=== PATIENT | female | born 1985 | race Caucasian/White ===

== ENCOUNTER → 2016-11-19 | Outpatient (CLI) | payer BC | END | disposition home or self-care (01) | LOC: C.PAPS 11:50 | PROVIDERS: ATTEND Physician Assistant | DX: Z01.419 Encounter for gynecological examination (general) (routine) without abnormal findings (principal) ==

== ENCOUNTER → 2016-11-19 | Outpatient (CLI) | payer BC ==
[2016-11-19 16:55] LABS: HEMATOCRIT 43.2 % (37-47); MEAN CELL VOLUME 101.4 fL (80-100); MEAN CORPUSCULAR HEMOGLOBIN 35.9 pg (25-34); MEAN CORPUSCULAR HGB CONC 35.4 g/dl (32-36); MEAN PLATELET VOLUME 10.7 fL (7.4-10.4); PLATELET COUNT 215 K/uL (130-400); RED BLOOD COUNT 4.26 M/uL (4.2-5.4)
[2016-11-19 17:22] LABS: PREG INTERNAL NEGATIVE QC NEG CLEAR BACKGROUND; PREG INTERNAL POSITIVE QC POS CONTROL LINE
[2016-11-19 17:50] LABS: URINE APPEARANCE CLEAR (CLEAR); URINE BILIRUBIN NEG (NEG); URINE COLOR YELLOW; URINE EPITHELIAL CELL AUTO >30 /lpf (0-5); URINE NITRITE NEG (NEG); URINE PH 6.5 (4.5-7.5); URINE SPECIFIC GRAVITY 1.008 (1.000-1.030); UROBILINOGEN NEG (NEG)
[2016-11-19 17:56] LABS: MANUAL MICROSCOPIC REQUIRED? NO; REVIEW REQ? NO
[2016-11-21 01:18] LABS: RAPID PLASMA REAGIN NONREACTIVE (NONREACT)
[2016-11-22 23:55] LABS: CHLAMYDIA TRACH RNA*** NOT DETECTED (NOT DETECTED); GC (NEIS GONORRHOEAE)RNA** NOT DETECTED (NOT DETECTED)
== END | disposition home or self-care (01) ==
LOC: C.LAB1850 15:26
PROVIDERS: ATTEND Physician Assistant
DX: N92.6 Irregular menstruation, unspecified (principal); R39.9 Unspecified symptoms and signs involving the genitourinary system; Z11.3 Encounter for screening for infections with a predominantly sexual mode of transmission

== ENCOUNTER → 2017-03-17 | Outpatient (CLI) | payer BC | END | disposition home or self-care (01) | LOC: C.LAB1850 16:05 | PROVIDERS: ATTEND Obstetrics & Gynecology | DX: N83.209 Unspecified ovarian cyst, unspecified side (principal) ==

== ENCOUNTER → 2017-08-26 | Outpatient (CLI) | payer BC ==
[2017-08-26 16:25] LABS: BASO % 0.1 %; BASO ABS # 0.01 K/uL (0-0.2); EOS % 0.9 %; EOS ABS # 0.07 K/uL (0-0.5); HEMATOCRIT 32.5 % (37-47); HEMOGLOBIN 11.5 g/dL (12.0-16.0); IG# 0.02 K/uL (0.00-0.02); LYMPH % 23.4 %; LYMPH ABS # 1.92 K/uL (1.2-3.4); MEAN CELL VOLUME 98.5 fL (80-100); MEAN CORPUSCULAR HEMOGLOBIN 34.8 pg (25-34); MEAN CORPUSCULAR HGB CONC 35.4 g/dl (32-36); MEAN PLATELET VOLUME 10.4 fL (7.4-10.4); MONO % 9.8 %; NEUT % 65.6 %; NEUT ABS # 5.37 K/uL (1.4-6.5); PLATELET COUNT 254 K/uL (130-400); RED CELL DISTRIBUTION WIDTH CV 11.8 % (11.5-14.5); RED CELL DISTRIBUTION WIDTH SD 42.2 fL (36.4-46.3); WHITE BLOOD COUNT 8.19 K/uL (4.8-10.8)
== END | disposition home or self-care (01) ==
LOC: C.LAB1850 14:42
PROVIDERS: ATTEND Obstetrics & Gynecology
DX: O09.511 Supervision of elderly primigravida, first trimester (principal)

== ENCOUNTER → 2017-10-19 | Outpatient (CLI) | payer BC | END | disposition home or self-care (01) | LOC: C.LAB1850 16:51 | PROVIDERS: ATTEND Obstetrics & Gynecology | DX: O09.512 Supervision of elderly primigravida, second trimester (principal) ==

== ENCOUNTER → 2017-10-28 | Outpatient (CLI) | payer BC | END | disposition home or self-care (01) | LOC: C.LAB1850 07:37 | PROVIDERS: ATTEND Obstetrics & Gynecology | DX: O28.1 Abnormal biochemical finding on antenatal screening of mother (principal) ==

== ENCOUNTER 2018-03-20 03:09 | Inpatient (IN) | payer BC ==
[~2018-03-20] VITALS: Ht 165.1 cm; Wt 75.0 kg
[2018-03-20 03:53] VITALS: Ht 165.1 cm; Wt 75.0 kg
[2018-03-20] MEDS ORDERED: NURSING VERBAL MED ORDER ONE (04:00)
[2018-03-20] MEDS ORDERED: PEDICHW53 (04:00)
[2018-03-20] MEDS ORDERED: RANI150T3 PO (04:03)
[2018-03-20 04:10] LABS: HEMATOCRIT 29.6 % (37-47); HEMOGLOBIN 9.8 g/dL (12.0-16.0); MEAN CELL VOLUME 97.7 fL (80-100); MEAN CORPUSCULAR HEMOGLOBIN 32.3 pg (25-34); MEAN CORPUSCULAR HGB CONC 33.1 g/dl (32-36); PLATELET COUNT 144 K/uL (130-400); RED CELL DISTRIBUTION WIDTH CV 13.8 % (11.5-14.5); WHITE BLOOD COUNT 14.15 K/uL (4.8-10.8)
[2018-03-20] MEDS ORDERED: CEFAZOLIN IV 2,000 MG in SYRINGE 0 ML IV SCH (04:30)
[2018-03-20] MEDS ORDERED: LACTATED RINGER'S 1000ML 1,000 ML IV SCH ×2 (04:45→06:37)
[2018-03-20] MEDS ORDERED: LACTATED RINGER'S 1000ML 1,000 ML IV ONE (04:45)
[2018-03-20] MEDS ORDERED: LACTATED RINGER'S 1000ML 1,000 ML IV PRN (06:37)
[2018-03-20] MEDS ORDERED: LACTATED RINGER'S 1000ML 500 ML IV PRN ×2 (06:37→11:50)
[2018-03-20] MEDS ORDERED: OXYTOCIN 30 UNITS/500ML NSS IV PRN ×2 (06:45→14:30)
[2018-03-20] MEDS ORDERED: EpHEDrine SULFATE INJ 50 MG/ML AMP ONE (11:13)
[2018-03-20] MEDS ORDERED: FENTANYL CITRATE INJ 50 MCG/1 ML 2 ML VIAL ONE (11:13)
[2018-03-20] MEDS ORDERED: BUPIVACAINE 0.25% 30 ML VIAL ONE (11:13)
[2018-03-20] MEDS ORDERED: FENTANYL 2MCG/ML ROPIV 1.25MG/ML 100ML BAG ONE (11:14)
[2018-03-20] MEDS ORDERED: NALOXONE HCL INJ 1 MG in SODIUM CHLORIDE 0.9% 1000ML 1,000 ML IV PRN (11:50)
[2018-03-20] MEDS ORDERED: EpHEDrine SULFATE INJ 50 MG/ML AMP IV PRN (12:00)
[2018-03-20] MEDS ORDERED: DiphenhydrAMINE HCL 50 MG/ML VIAL IV PRN (12:00)
[2018-03-20] MEDS ORDERED: FENTANYL 2MCG/ML ROPIV 1.25MG/ML 100ML BAG EPI PRN (12:00)
[2018-03-20] MEDS ORDERED: NALOXONE HCL INJ 0.4 MG/1 ML VIAL/CARP IV PRN (12:00)
[2018-03-20] MEDS ORDERED: NALBUPHINE HCL INJ 10 MG/ML 1ML AMP IV PRN (12:00)
[2018-03-20] MEDS ORDERED: ONDANSETRON INJ 2 MG/ML 2 ML VIAL IV PRN (12:00)
[2018-03-20] MEDS ORDERED: CEFAZOLIN IV 1,000 MG in SYRINGE 0 ML IV PRN (13:00)
[2018-03-20] MEDS ORDERED: OXYTOCIN INJ 20 UNITS in LACTATED RINGER'S 1000ML 1,000 ML IV SCH (14:28)
[2018-03-20] MEDS ORDERED: LANOLIN OINT EXT PRN (14:30)
[2018-03-20] MEDS ORDERED: DIPHTHERIA/TETANUS/PERTUSSIS 0.5 ML SYR/VIAL IM. ONE (14:30)
[2018-03-20] MEDS ORDERED: HYDROCORTISONE ACETATE 25 MG SUPP PR PRN (14:30)
[2018-03-20] MEDS ORDERED: BENZOCAINE 20% AER SPR 82.5 GM CAN EXT PRN (14:30)
[2018-03-20] MEDS ORDERED: IBUPROFEN 600 MG TAB PO PRN (14:30)
[2018-03-20] MEDS ORDERED: ACETAMINOPHEN 325 MG TAB PO PRN (14:30)
[2018-03-20] MEDS ORDERED: OXYCODONE/ACETAMINOPHEN 5-325 TAB PO PRN (14:30)
[2018-03-20] MEDS ORDERED: SUPERCREAM 0.870 % 15GM JAR EXT PRN (14:30)
--- NOTE | 2018-03-20 14:56 | DELIVERY SUMMARY ---
DATE OF OPERATION: 03/20/2018 Delivery Summary Patient dilated to complete and pushed to deliver a viable male infant, Apgars 8 and 8 via over partial third-degree perineal laceration. Mouth and nose bulb suctioned at the perineum. Shoulders delivered with ease however body dystocia noted and relieved with further effective maternal expulsive efforts. was vigorous and crying at . Cord was clamped at 30 seconds of life and to maternal abdomen, where the cord was then doubly clamped and cut. Placenta was delivered spontaneously and intact, 3-vessel cord. Hemostasis achieved with dilute Pitocin and uterine massage. Bladder drained under sterile conditions for 200 mL of urine. Cervix and sulci intact. Laceration repaired in a usual fashion using 2-0 and 3-0 Vicryl. EBL 300 mL. Mother and baby stable in recovery. I attest to the content of the Intraoperative Record and any orders documented therein. Any exceptions are noted below. MTDD
--- NOTE | 2018-03-20 18:18 | Anesthesia Procedure Note ---
Anesthesia Epidural Removal Nt Date & Time Mar 20, 2018 at 18:18 Vital Signs Pain Intensity: 0.0 Notes Mental Status: alert / awake / arousable, participated in evaluation Nausea / Vomiting: adequately controlled Pain: adequately controlled Airway Patency, RR, SpO2: stable & adequate BP & HR: stable & adequate Hydration State: stable & adequate Neuraxial Anesthesia: was administered, sensory block is resolving Anesthetic Complications: no major complications apparent, pt satisfied with anesthetic care Epidural: removed without complications, with tip intact
[2018-03-20 18:30] VITALS: BP 127/79; PULSE 102; TEMP 37.1; O2SAT 97
[2018-03-20] MEDS: DOCUSATE SODIUM 100 MG CAP PO SCH (20:00)
[2018-03-21] VITALS (7 sets, daily range): BP systolic 103–129; BP diastolic 65–78; PULSE 73–136; TEMP 36.6–37.3; O2SAT 98–99
--- NOTE | 2018-03-21 06:47 | Progress Note ---
Subjective Mar 21, 2018. Subjective conversation w/ patient, physical exam Ambulation: ambulating normally Voiding: no voiding problems Passing Gas: Yes Diet Tolerance: Regular Diet (tolerting no N/V) Lochia: Moderate Feeding Type: Breast Feeding (Some trouble with latch, supplementing with formula ) Pain: 1/10, improving Review of Systems Constitutional: No fever, No chills, No sweats Respiratory: No cough, No sputum, No wheezing Cardiac: No chest pain, No palpitations Abdomen: No pain, No nausea, No vomiting Female : No dysuria Objective Vital Signs Date Time Temp Pulse Resp B/P (MAP) Pulse Ox O2 Delivery O2 Flow Rate FiO2 03/21/18 04:00 36.8 73 20 103/65 (78) Room Air 03/21/18 00:00 Room Air 03/21/18 00:00 37.0 88 19 108/65 (79) Room Air 03/20/18 18:30 97 Room Air 03/20/18 18:30 37.1 102 18 127/79 (95) 97 Room Air Physical Exam General Appearance: WELL-APPEARING, NO APPARENT DISTRESS Respiratory/Chest: chest non-tender, normal breath sounds Cardiovascular: regular rate, rhythm, no murmur Abdomen: normal bowel sounds Fundus: Firm, Relation to Umbilicus (2 cm Below ) Extremities: non-tender, no calf tenderness Laboratory Results Last 24 Hours Test 03/21/18 06:12 Medications Current Inpatient Medications Medications (Trade) Dose Ordered Sig/Jonelle Route Start Time Stop Time Status Last Admin Dose Admin Ranitidine HCl (zANTac TAB) 150 mg BID PO 03/20/18 20:00 04/19/18 19:59 Oxytocin (Pitocin IV) 30 units UD PRN IV 03/20/18 14:30 04/19/18 14:29 Benzocaine (Dermoplast Aero Spr) 1 appln PRN PRN EXT 03/20/18 14:30 04/19/18 14:29 03/20/18 19:07 82.5 APPLN Cocaine HCl (Supercream 0.870% Cr) BID PRN EXT 03/20/18 14:30 04/03/18 14:29 Hydrocortisone Acetate (Anusol Hc Supp) 25 mg BID PRN MS 03/20/18 14:30 04/19/18 14:29 Lanolin (Lanolin Oint) PRN PRN EXT 03/20/18 14:30 04/19/18 14:29 Acetaminophen (Tylenol Tab) 650 mg Q6H PRN PO 03/20/18 14:30 04/19/18 14:29 Oxycodone/ Acetaminophen (Percocet 5-325mg Tab) 1 tab Q4H PRN PO 03/20/18 14:30 04/03/18 14:29 Docusate Sodium (coLACE CAP) 100 mg BID PO 03/20/18 20:00 04/19/18 19:59 Ibuprofen (Motrin Susp) 600 mg Q4H PRN PO 03/21/18 00:30 04/20/18 00:29 Assessment and Plan Post- Day#: 1 Continue Routine Care: 33 yo delivered at 37+6 PPD1 s/p -AFVSS, Pt doing well resting comfortably with baby in the room -no si/sx of anemia, Hgb 9.8 from 9.8 on admission -Plan is to breast feed, trouble with latch, tried expressing breast milk into spoon with good results, supplementing with formula -Tolerating regular diet, no n/v -Continue to encourage ambulation -Routine care Resident Physician Supervision Note: I interviewed and examined the patient. Discussed with Dr. Villagran and agree with findings and plan as documented in the note. Any exceptions or clarifications are listed here: Doing well. Routine care. Documented By: Michelle Mcnally Resident Tracking Resident Involvement: Resident Care Provided Care Provided: Adult Hospital Medicine
[2018-03-21 06:59] LABS: HEMATOCRIT 29.3 % (37-47); HEMOGLOBIN 9.8 g/dL (12.0-16.0)
--- NOTE | 2018-03-21 07:01 | Discharge Instructions ---
Discharge Instructions Date of Service Mar 21, 2018. Admission Reason for Admission: LABOR Discharge Discharge Diagnosis / Problem: Discharge Goals Goal(s): Routine recovery after delivery Medications Continue Dispensed Medications: supercream, dermaplast, tucks Activity Recommendations Activity Limitations: per Instructions/Follow-up section . Instructions / Follow-Up Instructions / Follow-Up ACTIVITY RECOMMENDATIONS: * Gradual return to full activity over the next 2-3 weeks. * No lifting - nothing heavier than baby over the next 2-3 weeks. * Do not engage in vigorous exercise, sexual activity or sports until cleared by your physician. * Do not drive or operate any motorized equipment until cleared by your physician. * You may shower/bathe daily. MEDICATIONS: For discomfort or pain, you may use Acetaminophen (Tylenol), Ibuprofen (Advil), or Naproxen (Aleve) following the package directions. For constipation you may use Colace following the package directions. BREAST CARE: If you are not breast feeding: * Wear a supportive bra 24 hours a day for one to two weeks. * Avoid stimulating your breasts and nipples as much as possible during the first few weeks after delivery. * When taking a shower, have the warm water hit your back, not breasts. * When your breasts feel full, apply ice packs. Usually three to four times a day helps ease the discomfort. * Take a mild pain medication (Tylenol / Motrin) when you are uncomfortable. If breast feeding: * Use breast milk to lubricate nipples. Lansinoh cream may be used for sore nipples. You do not need to remove cream prior to breast feeding. If using a different brand of cream, check the label for directions regarding removal of cream prior to nursing. * Wear a supportive bra. * If having problems with breasts or breast feeding, call a homemaking rehabilitation consultant or your health care provider. EPISIOTOMY CARE: After delivery, if you have an episiotomy (stitches), the following steps will ease discomfort and aid healing. * For the first 24 hours after delivery, place ice packs next to your episiotomy to help reduce swelling. * After the first 24 hour-period, sitz baths, either portable or in the tub, are suggested. A shower with a shower arm sprayed over the episiotomy may be comforting. * [place] care should be done after each voiding and bowel movement. Squirt warm water from a plastic bottle over the perineum (region of the body between the anus and urinary opening) and pat dry. * Use Dermoplast to ease discomfort. Shake container. [place] directly over the episiotomy. Place a Tucks on a clean sanitary pad next to your episiotomy. SPECIAL CARE INSTRUCTIONS: When you are discharged from the hospital, it is important for you to follow the instructions listed below: * During the first week at home, you should be able to care for yourself and your baby. In addition, the usual light household activities are encouraged. * Limit your activities to the way you feel. Do not try to clean the house or move furniture. Be sensible. * If you actively engage in sports and have done so up until the time of your delivery, you may resume these activities as soon as you feel able. This may take up to one month or even longer. Use good judgment. * Continue to take your vitamins for at least six weeks after the of your baby. * Your diet need not be limited unless you were on a special diet before your delivery. Breast-feeding mothers need around 2500 calories per day and at least 64-80 ounces of fluid per day (8 to 10 glasses). * You should eat foods from the four major food groups. Crash diets or fad diets are to be avoided. Eating lean meats, fresh fruits and vegetables, low-fat dairy products, high fiber foods and a regular exercise program, will help you get back to your pre- weight without putting your health at risk. * Constipation is sometimes a problem after delivery. Take a mild laxative as needed. If breast feeding, Milk of Magnesia is acceptable to use. You may use a suppository or Fleets enema if no episiotomy. * A daily shower or tub bath is suggested. Be sure to thoroughly and gently dry the perineum. * A bloody vaginal discharge will usually continue until around four weeks post . A small amount of bleeding may continue for as long as six weeks. Vaginal discharge changes from the bright red bleeding after delivery to pink then brownish and finally yellowish-pink before becoming white and disappearing. * Bleeding may increase with activity. Your first period may come in 4-8 weeks. If you are breast feeding, your period may be delayed even longer. * [place] (sex) can begin whenever both you and your partner feel comfortable and do not have any form of genital infection. It is recommended that you wait at least six weeks for internal and external healing to occur. If you have questions, please talk to your health care practitioner. A condom should be used to prevent infection and . * Foreplay, gentle intercourse and lubrication is very important the first several times to prevent pain. A water-based lubricant such as K-Y jelly or Astroglide may be used. * If you have RH negative blood and your baby is RH positive, you will receive RHOGAM by injection prior to discharge. The nurse will give you a card to keep with you that has the date and place that you received RHOGAM after delivery. * During your care, you had a Rubella screen done to check for the presence of rubella antibodies in your blood. If your test was negative, you will receive a Rubella vaccine prior to discharge. This vaccine may cause a fever, soreness at the injection site and flu-like symptoms. If these symptoms persist, notify your health care practitioner. is not advised for one month after a Rubella vaccine. * Verbalizes understanding of car seat law as reviewed with patient nursing. * Car Seat hand-out given and reviewed with patient by nursing. * Shaken baby information reviewed with patient by nursing. Call you doctor if: * Heavy bleeding (saturating several pads an hour) or passing clots the size of your fist. * A fever >101 degrees F (38.3 degrees C) on two occasions four hours apart and /or chills. * Unusual pain in the pelvic or vaginal areas. * "Baby Blues" lasting longer than two weeks. If you have any questions or concerns, call your health care practitioner at . FOLLOW UP VISIT: * Please call the office at to schedule a 6 week examination. It is important you keep this appointment. It is important for you to make arrangements for either yearly or twice yearly check-ups thereafter. Current Hospital Diet Patient's current hospital diet: Regular OB Diet Discharge Diet Recommended Diet: Regular OB Diet Pending Studies Studies pending at discharge: no Medical Emergencies . Who to Call and When: Medical Emergencies: If at any time you feel your situation is an emergency, please call 911 immediately. . Non-Emergent Contact Non-Emergency issues call your: Foot Doctor Call Non-Emergent contact if: temperature is above 100.5 . . "Provider Documentation" section prepared by Ihsan Villagran. . Resident Tracking Resident Involvement: Resident Care Provided Care Provided: Adult [facility]
[2018-03-21] MEDS: DOCUSATE SODIUM 100 MG CAP PO SCH ×2 (08:59→19:41)
[2018-03-21] MEDS: IBUPROFEN 200 MG/10 ML UDC PO PRN ×2 (11:56→21:44)
[2018-03-21] MEDS: RANITIDINE HCL 150 MG TAB PO SCH (19:46)
--- NOTE | 2018-03-22 07:04 | Progress Note ---
Subjective Mar 22, 2018. Subjective conversation w/ patient, physical exam Ambulation: ambulating normally Voiding: no voiding problems Passing Gas: Yes Diet Tolerance: Regular Diet Lochia: Small Feeding Type: Breast Feeding (pumping and bottle feeding) Pain: 2/10 improving Review of Systems Constitutional: No fever, No chills, No sweats Respiratory: No cough, No sputum, No wheezing Cardiac: No chest pain, No palpitations Abdomen: No pain, No nausea, No vomiting Female : No dysuria Objective Vital Signs Date Time Temp Pulse Resp B/P (MAP) Pulse Ox O2 Delivery O2 Flow Rate FiO2 03/21/18 23:20 36.6 86 18 121/76 (91) Room Air 03/21/18 19:25 Room Air 03/21/18 19:25 36.9 97 18 129/78 (95) Room Air 03/21/18 15:30 37.3 136 18 112/71 (85) 99 Room Air 03/21/18 11:40 37.0 93 18 114/73 (87) 99 Room Air 03/21/18 07:46 36.8 85 18 105/67 (80) 98 Room Air 03/21/18 07:30 Room Air Physical Exam General Appearance: WELL-APPEARING, NO APPARENT DISTRESS Respiratory/Chest: chest non-tender, no respiratory distress Cardiovascular: regular rate, rhythm, no murmur Abdomen: normal bowel sounds Fundus: Firm, Relation to Umbilicus (4cm below) Extremities: non-tender, no calf tenderness Laboratory Results Date Time Temp Pulse Resp B/P (MAP) Pulse Ox O2 Delivery O2 Flow Rate FiO2 03/21/18 23:20 36.6 86 18 121/76 (91) Room Air 03/21/18 19:25 Room Air 03/21/18 19:25 36.9 97 18 129/78 (95) Room Air 03/21/18 15:30 37.3 136 18 112/71 (85) 99 Room Air 03/21/18 11:40 37.0 93 18 114/73 (87) 99 Room Air 03/21/18 07:46 36.8 85 18 105/67 (80) 98 Room Air 03/21/18 07:30 Room Air Medications Current Inpatient Medications Medications (Trade) Dose Ordered Sig/Jonelle Route Start Time Stop Time Status Last Admin Dose Admin Ranitidine HCl (zANTac TAB) 150 mg BID PO 8/20/18 20:00 04/19/18 19:59 Oxytocin (Pitocin IV) 30 units UD PRN IV 03/20/18 14:30 04/19/18 14:29 Benzocaine (Dermoplast Aero Spr) 1 appln PRN PRN EXT 03/20/18 14:30 04/19/18 14:29 03/20/18 19:07 82.5 APPLN Cocaine HCl (Supercream 0.870% Cr) BID PRN EXT 03/20/18 14:30 04/03/18 14:29 Hydrocortisone Acetate (Anusol Hc Supp) 25 mg BID PRN NE 03/20/18 14:30 04/19/18 14:29 Lanolin (Lanolin Oint) PRN PRN EXT 03/20/18 14:30 04/19/18 14:29 Acetaminophen (Tylenol Tab) 650 mg Q6H PRN PO 03/20/18 14:30 04/19/18 14:29 Oxycodone/ Acetaminophen (Percocet 5-325mg Tab) 1 tab Q4H PRN PO 03/20/18 14:30 04/03/18 14:29 Docusate Sodium (coLACE CAP) 100 mg BID PO 03/20/18 20:00 04/19/18 19:59 03/21/18 19:41 100 MG Ibuprofen (Motrin Susp) 600 mg Q4H PRN PO 03/21/18 00:30 04/20/18 00:29 03/21/18 21:44 600 MG Assessment and Plan Post- Day#: 2 Continue Routine Care: Resident Physician Supervision Note: I was present with Dr. Villagran during the history and exam. I discussed the case with the resident and agree with the findings and plan as documented in the note. Any exceptions or clarifications are listed here: [None] Documented By: Aster Enamorado Gita 33 yo PPD2 s/p at 37+6 -AFVSS, Pt doing well resting comfortably with baby in the room -no si/sx of anemia, yesterday Hgb 9.8 from 9.8 on admission -Plan is to breast pump and bottle feed -Tolerating regular diet, no n/v -Continue to encourage ambulation -Routine care -Provided Discharge Counseling regarding vaginal bleeding, fever, f/u 6 weeks, no heavy lifting for 2-3 weeks, breast feeding, taking pre- vitamin, and nothing in the vagina for 6 weeks (tampons, douching, intercourse) Resident Tracking Resident Involvement: Resident Care Provided Care Provided: Adult Hospital Medicine
[2018-03-22 08:00] VITALS: BP 105/68; PULSE 75; TEMP 36.8
[2018-03-22] MEDS: RANITIDINE HCL 150 MG TAB PO SCH (08:00)
[2018-03-22] MEDS: DOCUSATE SODIUM 100 MG CAP PO SCH (08:00)
[2018-03-22 10:23] VITALS: BP_DIAS 68; PULSE 75; TEMP 36.8
[2018-03-22] MEDS: IBUPROFEN 200 MG/10 ML UDC PO PRN (12:04)
== END 2018-03-22 15:12 | disposition home or self-care (01) | DRG 775 ==
LOC: C.OPB 03:09 → C.LD 03:09 → C.OPB 03:48 → C.OBG 18:36
PROVIDERS: ADMIT Obstetrics & Gynecology; ATTEND Obstetrics & Gynecology
PROC: 10E0XZZ Delivery of Products of Conception, External Approach (ICD-10-PCS; principal; 2018-03-20)
PROC: 0DQR0ZZ Repair Anal Sphincter, Open Approach (ICD-10-PCS; principal; 2018-03-20)
PROC: 0KQM0ZZ Repair Perineum Muscle, Open Approach (ICD-10-PCS; principal; 2018-03-20)
DX: O24.420 Gestational diabetes mellitus in childbirth, diet controlled (principal); O70.20 Third degree perineal laceration during delivery, unspecified; Z22.330 Carrier of Group B streptococcus; Z3A.37 37 weeks gestation of pregnancy; Z37.0 Single live birth